=== PATIENT | female | born 1980 | race Caucasian/White ===

== ENCOUNTER 2019-11-17 08:42 | Day surgery (SDC) | payer BC ==
[~2019-11-17 08:42] MED LIST: Lactated Ringers 1,000 ML IV SCH; Sodium Chloride 0.9% 10 ML SDV IV PRN; Sodium Chloride 0.9% 10 ML Syringe FLUSH PRN; Sodium Chloride 0.9% 2.5 ML Syringe FLUSH PRN
--- NOTE | 2019-11-17 09:16 | PCM.PREANE ---
Preanesthetic Assessment - Anesthesia/Transfusion/Family Hx Anesthesia History: Prior Anesthesia Without Reaction Family History of Anesthesia Reaction: No Transfusion History: No Prior Transfusion(s) Intubation History: Unknown - Review of Systems General: No Symptoms Pulmonary: No Symptoms Cardiovascular: No Symptoms Gastrointestinal: No Symptoms Neurological: No Symptoms Other: Reports: None - Physical Assessment Vital Signs: Last Vital Signs Temp 36.4 C 11/17/19 08:50 Pulse 79 11/17/19 08:50 Resp 16 11/17/19 08:50 BP 106/70 11/17/19 08:50 Pulse Ox 100 11/17/19 08:50 Height: 5 ft 4 in Weight: 71.214 kg ASA Class: 2 Mental Status: Alert & Oriented x3 Airway Class: Mallampati = 2 Dentition: Reports: Normal Dentition Thyro-Mental Finger Breadths: 3 Mouth Opening Finger Breadths: 2 ROM/Head Extension: Full Lungs: Clear to Auscultation, Normal Respiratory Effort Cardiovascular: Regular Rate, Regular Rhythm - Lab Values: Laboratory Last Values Urine HCG, Qual NEGATIVE (NEGATIVE) 11/17/19 08:50 - Allergies Allergies/Adverse Reactions: Allergies Allergy/AdvReac Type Severity Reaction Status Date / Time No Known Allergies Allergy Verified 11/15/19 12:10 - Blood Blood Available: No - Anesthesia Plan Pre-Op Medication Ordered: None - Acknowledgements Anesthesia Type Planned: General Anesthesia Pt an Appropriate Candidate for the Planned Anesthesia: Yes Alternatives and Risks of Anesthesia Discussed w Pt/Guardian: Yes Pt/Guardian Understands and Agrees with Anesthesia Plan: Yes PreAnesthesia Questionnaire HEENT History: Reports: Other (See Below) Other HEENT History: wears glasses/contacts 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 [No Known Home Meds] 11/15/19 [History] - CURRENT (IN HOUSE) MEDS Current Meds: Current Medications Lactated Ringer's (Ringers, Lactated) 1,000 mls @ 125 mls/hr IV ASDIRECTED SRINIVAS Sodium Chloride (Saline Flush) 10 ml FLUSH ASDIRECTED PRN PRN Reason: Keep Vein Open Sodium Chloride (Saline Flush) 2.5 ml FLUSH ASDIRECTED PRN PRN Reason: Keep Vein Open Sodium Chloride (Normal Saline) 10 ml IV ASDIRECTED PRN PRN Reason: IV Use
[2019-11-17] MEDS ORDERED: Midazolam 1 MG/ML 2 ML SDV IVPUSH ONE (09:18)
[2019-11-17] MEDS ORDERED: fentaNYL 100 MCG/2 ML SDV IVPUSH PRN (09:20)
[2019-11-17] MEDS ORDERED: Acetaminophen 1,000 MG in Premix Bag 1 BAG IV PRN (09:20)
[2019-11-17] MEDS ORDERED: Methylene Blue 50 MG/10 ML Ampule ONE (09:29)
[2019-11-17] MEDS ORDERED: fentaNYL 100 MCG/2 ML SDV ONE (09:35)
[2019-11-17] MEDS ORDERED: Propofol 200 MG/20 ML SDV ONE (09:35)
[2019-11-17] MEDS ORDERED: Midazolam 1 MG/ML 2 ML SDV ONE (09:35)
[2019-11-17] MEDS ORDERED: Ketorolac 30 MG/ML SDV ONE (09:36)
[2019-11-17] MEDS ORDERED: Lidocaine 2% 5 ML SDV ONE (09:36)
[2019-11-17] MEDS ORDERED: Ondansetron 4 MG/2 ML SDV ONE (09:36)
[2019-11-17] MEDS ORDERED: Rocuronium 100 MG/10 ML Syringe ONE (09:36)
[2019-11-17] MEDS ORDERED: Glycopyrrolate 0.2 MG/ML SDV ONE (09:36)
[2019-11-17] MEDS ORDERED: Sugammadex Sodium 200 MG/2 ML VIAL ONE (09:39)
[2019-11-17] MEDS ORDERED: Octyl 2-Cyanoacrylate 1 Tube ONE (10:53)
--- NOTE | 2019-11-17 11:15 | PCM.DCSUM1 ---
Discharge Summary - Hospital Course Diagnosis: Stroke: No - Discharge Data Discharge Date: 11/17/19 Discharge Disposition: Home, Self-Care 01 Condition: Good - Referral to Home Health Primary Care Physician: PCP None - Patient Instructions Diet: Usual Diet as Tolerated Activity: As Tolerated Driving: Do Not Drive Showering/Bathing: May Shower - Discharge Plan Home Medications: Home Meds . [No Known Home Meds] 11/15/19 [History] - Discharge Summary/Plan Comment DC Time >30 min.: Yes - General Info Date of Service: 11/17/19 Functional Status: Reports: Pain Controlled - Review of Systems General: Reports: No Symptoms HEENT: Reports: No Symptoms Pulmonary: Reports: No Symptoms Cardiovascular: Reports: No Symptoms Gastrointestinal: Reports: No Symptoms Genitourinary: Reports: No Symptoms Musculoskeletal: Reports: No Symptoms Skin: Reports: No Symptoms Neurological: Reports: No Symptoms Psychiatric: Reports: No Symptoms - Patient Data Vitals - Most Recent: Last Vital Signs Temp 36.4 C 11/17/19 08:50 Pulse 79 11/17/19 08:50 Resp 16 11/17/19 08:50 BP 106/70 11/17/19 08:50 Pulse Ox 100 11/17/19 08:50 Weight - Most Recent: 71.214 kg Lab Results - Last 24 hrs: Laboratory Results - last 24 hr 11/17/19 Range/Units 08:50 Urine HCG, Qual NEGATIVE (NEGATIVE) Med Orders - Current: Current Medications Fentanyl (Sublimaze) 50 mcg IVPUSH Q5M PRN PRN Reason: Pain Lactated Ringer's (Ringers, Lactated) 1,000 mls @ 125 mls/hr IV ASDIRECTED SRINIVAS Last Admin: 11/17/19 09:15 Dose: 125 mls/hr Acetaminophen 1,000 mg/ Premix 100 mls @ 400 mls/hr IV Q6H PRN PRN Reason: Pain Sodium Chloride (Saline Flush) 10 ml FLUSH ASDIRECTED PRN PRN Reason: Keep Vein Open Sodium Chloride (Saline Flush) 2.5 ml FLUSH ASDIRECTED PRN PRN Reason: Keep Vein Open Sodium Chloride (Normal Saline) 10 ml IV ASDIRECTED PRN PRN Reason: IV Use Discontinued Medications Fentanyl (Sublimaze) Confirm Administered Dose 100 mcg .ROUTE .STK-MED ONE Stop: 11/17/19 09:36 Glycopyrrolate (Robinul) Confirm Administered Dose 0.2 mg .ROUTE .STK-MED ONE Stop: 11/17/19 09:37 Ketorolac Tromethamine (Toradol) Confirm Administered Dose 30 mg .ROUTE .STK- MED ONE Stop: 11/17/19 09:37 Lidocaine (Xylocaine-Mpf 2%) Confirm Administered Dose 5 ml .ROUTE .STK-MED ONE Stop: 11/17/19 09:37 Methylene Blue (Provayblue) Confirm Administered Dose 50 mg .ROUTE .STK-MED ONE Stop: 11/17/19 09:30 Midazolam HCl (Versed 1 Mg/Ml) 2 mg IVPUSH ONETIME ONE Stop: 11/17/19 09:19 Last Admin: 11/17/19 09:42 Dose: 2 mg Midazolam HCl (Versed 1 Mg/Ml) Confirm Administered Dose 2 mg .ROUTE .STK-MED ONE Stop: 11/17/19 09:36 Octyl Cyanoacrylate (Dermabond Advance) Confirm Administered Dose 1 applic .ROUTE .STK-MED ONE Stop: 11/17/19 10:54 Ondansetron HCl (Zofran) Confirm Administered Dose 4 mg .ROUTE .STK-MED ONE Stop: 11/17/19 09:37 Propofol (Diprivan 20 Ml) Confirm Administered Dose 200 mg .ROUTE .STK-MED ONE Stop: 11/17/19 09:36 Rocuronium [place] (Zemuron) Confirm Administered Dose 100 mg .ROUTE .STK-MED ONE Stop: 11/17/19 09:37 Sugammadex Sodium ([place]) Confirm Administered Dose 200 mg .ROUTE .STK-MED ONE Stop: 11/17/19 09:40 - Exam General: Reports: Alert, Oriented HEENT: Reports: Pupils Equal, Pupils Reactive, EOMI, Mucous Membr. Moist/[place] Neck: Reports: Supple Lungs: Reports: Clear to Auscultation, Normal Respiratory Effort Cardiovascular: Reports: Regular Rate, Regular Rhythm GI/Abdominal Exam: Normal Bowel Sounds, Soft, Non-Tender, No Organomegaly, No Distention, No Abnormal Bruit, No Mass, Pelvis Stable (Female) Exam: Normal External Exam, Normal Speculum Exam, Normal Bimanual Exam Rectal (Female) Exam: Normal Exam, Normal Rectal Tone Back Exam: Reports: Normal Inspection, Full Range of Motion Extremities: Normal Inspection, Normal Range of Motion, Non-Tender, No Pedal Edema, Normal Capillary Refill Skin: Reports: Warm, Dry, Intact Wound/Incisions: Reports: Healing Well Neurological: Reports: No New Focal Deficit Psy/Mental Status: Reports: Alert, Normal Affect, Normal Mood
--- NOTE | 2019-11-17 11:50 | PCM.POSTAN ---
POST ANESTHESIA ASSESSMENT - MENTAL STATUS Mental Status: Alert, Oriented - VITAL SIGNS Vital Signs: Last Vital Signs Temp 36.4 C 11/17/19 11:09 Pulse 70 11/17/19 11:44 Resp 15 11/17/19 11:44 BP 105/66 11/17/19 11:44 Pulse Ox 95 11/17/19 11:44 - RESPIRATORY Respiratory Status: Respiratory Rate WNL, Airway Patent, O2 Saturation Stable - CARDIOVASCULAR CV Status: Pulse Rate WNL, Blood Pressure Stable - GASTROINTESTINAL GI Status: No Symptoms - PAIN Pain Score: 3 - POST OP HYDRATION Hydration Status: Adequate & Stable - OBSERVATIONS Free Text/Narrative:: No anesthesia problems.
--- NOTE | 2019-11-17 12:28 | PCM48HPAN ---
Post Anesthesia Note - EVALUATION WITHIN 48HRS OF ANESTHETIC Vital Signs in Normal Range: Yes Patient Participated in Evaluation: Yes Respiratory Function Stable: Yes Airway Patent: Yes Cardiovascular Function Stable: Yes Hydration Status Stable: Yes Pain Control Satisfactory: Yes Nausea and Vomiting Control Satisfactory: Yes Mental Status Recovered: Yes Vital Signs: Last Vital Signs Temp 36.0 C L 11/17/19 11:50 Pulse 85 11/17/19 12:25 Resp 16 11/17/19 12:25 BP 111/65 11/17/19 12:25 Pulse Ox 98 11/17/19 12:25 - COMMENTS/OBSERVATIONS Free Text/Narrative:: No anesthesia problems.
--- NOTE | 2019-11-18 07:49 | OR ---
SURGEON: Elvin Brady MD DATE OF PROCEDURE: 11/17/2019 PREOPERATIVE DIAGNOSES: Pelvic pain, secondary infertility. POSTOPERATIVE DIAGNOSES: Pelvic pain, secondary infertility. OPERATION PERFORMED: Hysteroscopy, diagnostic laparoscopy. PRIMARY SURGEON: Elvin Brady MD TOOTH INSPECTOR: [place]. ANESTHESIA: General endotracheal intubation, Kam Palomo Arcos and Dr. Nieto. ESTIMATED BLOOD LOSS: Less than 50 mL. COMPLICATIONS: None. FINDINGS: The hysteroscopic finding was essentially normal. 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 INDICATIONS FOR SURGERY: This patient is 39 years old. She is attempting to get . Her hysterosalpingogram shows bilateral tubal occlusion, and the patient is admitted for further investigation in the form of hysteroscopy and diagnostic laparoscopy. PROCEDURE IN DETAIL: The patient was brought to the OR, properly identified, with an access to the abdomen and the vagina with the patient was prepped and draped in sterile fashion as usual. The cervix was dilated to accommodate 5 mm hysteroscope, and then hysteroscopy was performed. The endometrial cavity was essentially normal. Both ostia identified and they looked normal. There was no fibroid. There was no polyp into the endometrial cavity. Then the hysteroscope was removed, and ZUMI manipulator placed in place and the operation shifted abdominally. Stab wound done beneath the umbilicus. The Veress needle was placed in the peritoneal cavity and that cavity insufflated to 3.5 of carbon dioxide, and then utilizing the Visiport technique, 5 mm trocar inserted infraumbilically and then 5 mm trocar was placed in the left iliac fossa. After placing the patient in steep Trendelenburg, inspection of the pelvic organs revealed bilateral tubal occlusion with hydrosalpinx and clubbing of both tubal area. There was scarring in the cul-de-sac and around the tubes, which is most likely resultant from previous pelvic inflammatory disease. It is felt the ovaries look completely normal. The uterus is complete normal. It is felt at this time that the tube is not salvageable and it is not repairable and indeed the best chance for the patient to achieve is to seek in vitro consultation. Satisfied with these findings, the procedure ended. The instrument and hardware were retrieved from the abdomen and the vagina and the multiple laparoscopic incisions closed in layer. The patient tolerated the procedure well and went to recovery room in stable general condition. KRYSTAL / SUSAN /[id number]
== END 2019-11-17 12:30 | disposition home or self-care (01) ==
LOC: MW.SDS 08:42
PROVIDERS: ATTEND Obstetrics & Gynecology
DX: R10.2 Pelvic and perineal pain (principal); N97.1 Female infertility of tubal origin; N70.11 Chronic salpingitis; N85.8 Other specified noninflammatory disorders of uterus; F41.9 Anxiety disorder, unspecified; F32.9 Major depressive disorder, single episode, unspecified; F17.210 Nicotine dependence, cigarettes, uncomplicated
CPT/HCPCS: 49320; 58555; 81025; A9270; J0131; J1885; J2001; J2250; J2405; J2704; J3010; J3490; J7120; 00840

== ENCOUNTER 2020-05-24 08:12 | Day surgery (SDC) | payer BC ==
[2020-05-21 11:53] LABS: BLOOD UREA NITROGEN,BUN 9 mg/dL (7.0-18.0); CARBON DIOXIDE,CO2 27.4 mmol/L (21.0-32.0); CHLORIDE,CL 105 mmol/L (98-107); GLUCOSE RANDOM 95 mg/dL (74-106); POTASSIUM,K 4.2 mmol/L (3.5-5.1); SODIUM,NA 139 mmol/L (136-145)
[~2020-05-24 08:12] MED LIST changes: +Glycopyrrolate 0.2 MG/ML SDV ONE; +Lidocaine 2% 5 ML SDV ONE; +Midazolam 1 MG/ML 2 ML SDV ONE; +Ondansetron 4 MG/2 ML SDV ONE; +Propofol 200 MG/20 ML SDV ONE; +Rocuronium Bromide 50 MG/5 ML Syringe ONE; +fentaNYL 250 MCG/5 ML SDV ONE
[2020-05-24] MEDS ORDERED: Fluorescein 5 ML Vial ONE (08:47)
[2020-05-24] MEDS ORDERED: Octyl 2-Cyanoacrylate 1 Tube ONE (08:47)
[2020-05-24] MEDS ORDERED: fentaNYL 100 MCG/2 ML SDV IVPUSH PRN (08:48)
[2020-05-24] MEDS ORDERED: Albuterol 0.083% 2.5 MG/3 ML Neb Soln NEB PRN (08:48)
[2020-05-24] MEDS ORDERED: 50% Dextrose in Water 50 ML Syringe IVPUSH PRN (08:48)
[2020-05-24] MEDS ORDERED: EPINEPHrine 1:10,000 1 MG/10 ML Syringe IVPUSH PRN (08:48)
[2020-05-24] MEDS ORDERED: Naloxone 0.4 MG/ML Syringe IVPUSH PRN (08:48)
[2020-05-24] MEDS ORDERED: Atropine 0.1 MG/ML 10 ML Syringe IVPUSH PRN ×2 (08:48)
[2020-05-24] MEDS ORDERED: Midazolam 1 MG/ML 2 ML SDV IVPUSH ONE (09:20)
--- NOTE | 2020-05-24 09:22 | PCM.PREANE ---
Preanesthetic Assessment - Anesthesia/Transfusion/Family Hx Anesthesia History: Prior Anesthesia Without Reaction Family History of Anesthesia Reaction: No Transfusion History: No Prior Transfusion(s) Intubation History: Unknown - Review of Systems General: No Symptoms Pulmonary: No Symptoms Cardiovascular: No Symptoms Gastrointestinal: No Symptoms Neurological: No Symptoms Other: Reports: None - Physical Assessment NPO Status Date: 05/23/20 Vital Signs: Last Vital Signs Temp 97.7 F 05/24/20 08:30 Pulse 75 05/24/20 08:30 Resp 15 05/24/20 08:30 BP 110/73 05/24/20 08:30 Pulse Ox 98 05/24/20 08:30 Height: 5 ft 4 in Weight: 71.668 kg ASA Class: 2 Mental Status: Alert & Oriented x3 Airway Class: Mallampati = 2 Dentition: Reports: Normal Dentition ROM/Head Extension: Full Lungs: Clear to Auscultation, Normal Respiratory Effort Cardiovascular: Regular Rate, Regular Rhythm - Lab Values: Laboratory Last Values WBC 6.27 K/uL (4.0-11.0) 05/21/20 11:13 RBC 4.21 M/uL (4.30-5.90) L 05/21/20 11:13 Hgb 13.3 g/dL (12.0-16.0) 05/21/20 11:13 Hct 40.6 % (36.0-46.0) 05/21/20 11:13 MCV 96.4 fL (80.0-98.0) 05/21/20 11:13 MCH 31.6 pg (27.0-32.0) 05/21/20 11:13 MCHC 32.8 g/dL (31.0-37.0) 05/21/20 11:13 RDW Std Deviation 44.2 fl (28.0-62.0) 05/21/20 11:13 RDW Coeff of [place]ide 13 % (11.0-15.0) 05/21/20 11:13 Plt Count 304 K/uL (150-400) 05/21/20 11:13 MPV 9.80 fL (7.40-12.00) 05/21/20 11:13 Nucleated RBC % 0.0 /100WBC 05/21/20 11:13 Nucleated RBCs # 0 K/uL 05/21/20 11:13 Sodium 139 mmol/L (136-145) 05/21/20 11:13 Potassium 4.2 mmol/L (3.5-5.1) 05/21/20 11:13 Chloride 105 mmol/L (98-107) 05/21/20 11:13 Carbon Dioxide 27.4 mmol/L (21.0-32.0) 05/21/20 11:13 BUN 9 mg/dL (7.0-18.0) 05/21/20 11:13 Creatinine 0.6 mg/dL (0.6-1.0) 05/21/20 11:13 Est Cr Clr Drug Dosing 107.63 mL/min 05/21/20 11:13 Estimated GFR (MDRD) > 60.0 ml/min 05/21/20 11:13 Glucose 95 mg/dL (74-106) 05/21/20 11:13 Calcium 8.8 mg/dL (8.5-10.1) 05/21/20 11:13 HCG, Qual NEGATIVE (NEG) 05/21/20 11:13 Blood Type O POSITIVE 05/21/20 11:18 Antibody Screen NEGATIVE 05/21/20 11:18 - Allergies Allergies/Adverse Reactions: Allergies Allergy/AdvReac Type Severity Reaction Status Date / Time No Known Allergies Allergy Verified 05/18/20 14:13 - Anesthesia Plan Pre-Op Medication Ordered: Anxiolytic - Acknowledgements Anesthesia Type Planned: General Anesthesia Pt an Appropriate Candidate for the Planned Anesthesia: Yes Alternatives and Risks of Anesthesia Discussed w Pt/Guardian: Yes Pt/Guardian Understands and Agrees with Anesthesia Plan: Yes PreAnesthesia Questionnaire HEENT History: Reports: Other (See Below) Other HEENT History: wears glasses/contacts Cardiovascular History: Reports: None Respiratory History: Reports: None Gastrointestinal History: Reports: None Genitourinary History: Reports: None 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: , Other (See Below) Musculoskeletal History: Reports: None Neurological History: Reports: Other (See Below) Other Neuro History: hx of motion sickness Psychiatric History: Reports: Anxiety, Depression Endocrine/Metabolic History: Reports: None Hematologic History: Reports: None Immunologic History: Reports: None Oncologic (Cancer) History: Reports: None Dermatologic History: Reports: Psoriasis Other Dermatologic History: psoriasis on scalp - Past Surgical History Head Surgeries/Procedures: Reports: None HEENT Surgical History: Reports: Myringotomy w Tube(s), Oral Surgery Cardiovascular Surgical History: Reports: None Respiratory Surgical History: Reports: None GI Surgical History: Reports: None Female Surgical History: Reports: Other (See Below) Other Female Surgeries/Procedures: hysteroscopy, diagnostic laparoscopy Endocrine Surgical History: Reports: None Neurological Surgical History: Reports: None Musculoskeletal Surgical History: Reports: None Oncologic Surgical History: Reports: None Dermatological Surgical History: Reports: None - SUBSTANCE USE Tobacco Use Status *Q: Former Tobacco User Tobacco Use Within Last Twelve Months: Cigarettes - HOME MEDS Home Medications: Home Meds Clobetasol [Clobetasol Propionate 0.05%] 1 applic TOP ASDIRECTED PRN 05/18/20 [History] Fluticasone Propionate 1 spray NASBOTH DAILY 05/18/20 [History] Levothyroxine Sodium [Unithroid] 25 mcg PO DAILY 05/18/20 [History] Pnv No.95/Ferrous Fum/Folic AC [ Vitamin Tablet] 1 tab PO DAILY 05/18/20 [History] - CURRENT (IN HOUSE) MEDS Current Meds: Current Medications Albuterol (Proventil Neb Soln) 2.5 mg NEB ONETIME PRN PRN Reason: Wheezing Atropine Sulfate (Atropine 0.1 Mg/Ml) 0.5 mg IVPUSH ASDIRECTED PRN PRN Reason: Hypo-perfusion Atropine Sulfate (Atropine 0.1 Mg/Ml) 1 mg IVPUSH ASDIRECTED PRN PRN Reason: Hypo-Perfusion Dextrose/Water (Dextrose 50% In Water) 50 ml IVPUSH ASDIRECTED PRN PRN Reason: Hypoglycemia Epinephrine HCl (Epinephrine 1:10,000) 1 mg IVPUSH ASDIRECTED PRN PRN Reason: ACLS Guidelines Fentanyl (Sublimaze) 50 - 100 mcg IVPUSH Q5M PRN PRN Reason: Pain Lactated Ringer's (Ringers, Lactated) 1,000 mls @ 500 mls/hr IV BOLUS SRINIVAS Naloxone HCl (Narcan) 0.1 mg IVPUSH ASDIRECTED PRN PRN Reason: Respiratory Depression Sodium Chloride (Saline Flush) 10 ml FLUSH ASDIRECTED PRN PRN Reason: Keep Vein Open Sodium Chloride (Saline Flush) 2.5 ml FLUSH ASDIRECTED PRN PRN Reason: Keep Vein Open Sodium Chloride (Normal Saline) 10 ml IV ASDIRECTED PRN PRN Reason: IV Use Discontinued Medications Fentanyl (Sublimaze) Confirm Administered Dose 250 mcg .ROUTE .STK-MED ONE Stop: 05/24/20 07:05 Fluorescein Sodium ([place]-Fluor) Confirm Administered Dose 5 ml .ROUTE .STK-MED ONE Stop: 05/24/20 08:48 Glycopyrrolate (Robinul) Confirm Administered Dose 0.8 mg .ROUTE .STK-MED ONE Stop: 05/24/20 07:05 Lidocaine (Xylocaine-Mpf 2%) Confirm Administered Dose 5 ml .ROUTE .ST[employer]vel Ingredient Services-MED ONE Stop: 05/24/20 07:05 Midazolam HCl (Versed 1 Mg/Ml) Confirm Administered Dose 2 mg .ROUTE .STNovel [employer]red[employer] Services-MED ONE Stop: 05/24/20 07:05 Octyl Cyanoacrylate (Dermabond Advance) Confirm Administered Dose 1 applic .ROUTE .STNovel Ingred[employer] Services-MED ONE Stop: 05/24/20 08:48 Ondansetron HCl (Zofran) Confirm Administered Dose 4 mg .ROUTE .STNovel [employer] Services-MED ONE Stop: 05/24/20 07:05 Propofol (Diprivan 20 Ml) Confirm Administered Dose 200 mg .ROUTE .STK-MED ONE Stop: 05/24/20 07:05 Rocuronium [place] (Rocuronium [place]) Confirm Administered Dose 50 mg .ROUTE .STK-MED ONE Stop: 05/24/20 07:05
[2020-05-24] MEDS ORDERED: ePHEDrine 50 MG/ML SDV ONE (09:47)
--- NOTE | 2020-05-24 10:30 | PCM.OPNOTE ---
- General Post-Op/Procedure Note Date of Surgery/Procedure: 05/24/20 Operative Procedure(s): Dignostic Laparoscopy, Bilat Salpengectomy. Post-Op Diagnosis: Same Anesthesia Technique: General LMA Primary Surgeon: Elvin Brady EBL in mLs: 50 Complications: None Condition: Good
--- NOTE | 2020-05-24 10:31 | PCM.DCSUM1 ---
Discharge Summary - Hospital Course Diagnosis: Stroke: No - Discharge Data Discharge Date: 05/24/20 Discharge Disposition: Home, Self-Care 01 Condition: Good - Referral to Home Health Primary Care Physician: Jon Ramachandran MD - Patient Summary/Data Operative Procedure(s) Performed: Dignostic Laparoscopy, Bilat Salpengectomy. - Patient Instructions Diet: Usual Diet as Tolerated Activity: As Tolerated Driving: Do Not Drive Showering/Bathing: May Shower - Discharge Plan Home Medications: Home Meds Clobetasol [Clobetasol Propionate 0.05%] 1 applic TOP ASDIRECTED PRN 05/18/20 [History] Fluticasone Propionate 1 spray NASBOTH DAILY 05/18/20 [History] Levothyroxine Sodium [Unithroid] 25 mcg PO DAILY 05/18/20 [History] Pnv No.95/Ferrous Fum/Folic AC [ Vitamin Tablet] 1 tab PO DAILY 05/18/20 [History] - Discharge Summary/Plan Comment DC Time >30 min.: Yes - General Info Date of Service: 05/24/20 Functional Status: Reports: Pain Controlled - Review of Systems General: Reports: No Symptoms HEENT: Reports: No Symptoms Pulmonary: Reports: No Symptoms Cardiovascular: Reports: No Symptoms Gastrointestinal: Reports: No Symptoms Genitourinary: Reports: No Symptoms Musculoskeletal: Reports: No Symptoms Skin: Reports: No Symptoms Neurological: Reports: No Symptoms Psychiatric: Reports: No Symptoms - Patient Data Vitals - Most Recent: Last Vital Signs Temp 36.5 C 05/24/20 08:30 Pulse 75 05/24/20 08:30 Resp 15 05/24/20 08:30 BP 110/73 05/24/20 08:30 Pulse Ox 98 05/24/20 08:30 Weight - Most Recent: 71.668 kg Med Orders - Current: Current Medications Albuterol (Proventil Neb Soln) 2.5 mg NEB ONETIME PRN PRN Reason: Wheezing Atropine Sulfate (Atropine 0.1 Mg/Ml) 0.5 mg IVPUSH ASDIRECTED PRN PRN Reason: Hypo-perfusion Atropine Sulfate (Atropine 0.1 Mg/Ml) 1 mg IVPUSH ASDIRECTED PRN PRN Reason: Hypo-Perfusion Dextrose/Water (Dextrose 50% In Water) 50 ml IVPUSH ASDIRECTED PRN PRN Reason: Hypoglycemia Epinephrine HCl (Epinephrine 1:10,000) 1 mg IVPUSH ASDIRECTED PRN PRN Reason: ACLS Guidelines Fentanyl (Sublimaze) 50 - 100 mcg IVPUSH Q5M PRN PRN Reason: Pain Lactated Ringer's (Ringers, Lactated) 1,000 mls @ 500 mls/hr IV BOLUS SRINIVAS Last Admin: 05/24/20 08:40 Dose: 500 mls/hr Documented by: Naloxone HCl (Narcan) 0.1 mg IVPUSH ASDIRECTED PRN PRN Reason: Respiratory Depression Sodium Chloride (Saline Flush) 10 ml FLUSH ASDIRECTED PRN PRN Reason: Keep Vein Open Sodium Chloride (Saline Flush) 2.5 ml FLUSH ASDIRECTED PRN PRN Reason: Keep Vein Open Sodium Chloride (Normal Saline) 10 ml IV ASDIRECTED PRN PRN Reason: IV Use Discontinued Medications Ephedrine Sulfate (Ephedrine Sulfate) Confirm Administered Dose 50 mg .ROUTE .STK-MED ONE Stop: 05/24/20 09:48 Fentanyl (Sublimaze) Confirm Administered Dose 250 mcg .ROUTE .STK-MED ONE Stop: 05/24/20 07:05 Fluorescein Sodium ([place]-Fluor) Confirm Administered Dose 5 ml .ROUTE .STK-MED ONE Stop: 05/24/20 08:48 Glycopyrrolate (Robinul) Confirm Administered Dose 0.8 mg .ROUTE .STK-MED ONE Stop: 05/24/20 07:05 Lidocaine (Xylocaine-Mpf 2%) Confirm Administered Dose 5 ml .ROUTE .STK-MED ONE Stop: 05/24/20 07:05 Midazolam HCl (Versed 1 Mg/Ml) Confirm Administered Dose 2 mg .ROUTE .STK-MED ONE Stop: 05/24/20 07:05 Midazolam HCl (Versed 1 Mg/Ml) 2 mg IVPUSH ONETIME ONE Stop: 05/24/20 09:21 Last Admin: 05/24/20 09:20 Dose: 2 mg Documented by: Octyl Cyanoacrylate (Dermabond Advance) Confirm Administered Dose 1 applic .ROUTE .STK-MED ONE Stop: 05/24/20 08:48 Ondansetron HCl (Zofran) Confirm Administered Dose 4 mg .ROUTE .STK-MED ONE Stop: 05/24/20 07:05 Propofol (Diprivan 20 Ml) Confirm Administered Dose 200 mg .ROUTE .STK-MED ONE Stop: 05/24/20 07:05 Rocuronium [place] (Rocuronium [place]) Confirm Administered Dose 50 mg .ROUTE .STK-MED ONE Stop: 05/24/20 07:05 - Exam General: Reports: Alert, Oriented HEENT: Reports: Pupils Equal, Pupils Reactive, EOMI, Mucous Membr. Moist/[place]: Reports: Supple Lungs: Reports: Clear to Auscultation, Normal Respiratory Effort Cardiovascular: Reports: Regular Rate, Regular Rhythm GI/Abdominal Exam: Normal Bowel Sounds, Soft, Non-Tender, No Organomegaly, No Distention, No Abnormal Bruit, No Mass, Pelvis Stable (Female) Exam: Normal External Exam, Normal Speculum Exam, Normal Bimanual Exam Rectal (Female) Exam: Normal Exam, Normal Rectal Tone Back Exam: Reports: Normal Inspection, Full Range of Motion Extremities: Normal Inspection, Normal Range of Motion, Non-Tender, No Pedal Edema, Normal Capillary Refill Skin: Reports: Warm, Dry, Intact Wound/Incisions: Reports: Healing Well Neurological: Reports: No New Focal Deficit Psy/Mental Status: Reports: Alert, Normal Affect, Normal Mood
[2020-05-24] MEDS ORDERED: Haloperidol Lactate 5 MG/ML SDV IM ONE (10:52)
--- NOTE | 2020-05-24 10:53 | PCM.POSTAN ---
POST ANESTHESIA ASSESSMENT - MENTAL STATUS Mental Status: Alert, Oriented - VITAL SIGNS Vital Signs: Last Vital Signs Temp 97.3 F 05/24/20 10:29 Pulse 108 H 05/24/20 10:50 Resp 9 L 05/24/20 10:50 BP 97/65 05/24/20 10:50 Pulse Ox 99 05/24/20 10:50 - RESPIRATORY Respiratory Status: Respiratory Rate WNL, Airway Patent, O2 Saturation Stable - CARDIOVASCULAR CV Status: Pulse Rate WNL - POST OP HYDRATION Hydration Status: Adequate & Stable
[2020-05-24] MEDS ORDERED: Ketorolac 30 MG/ML SDV ONE (11:00)
--- NOTE | 2020-05-24 11:59 | PCM48HPAN ---
Post Anesthesia Note - EVALUATION WITHIN 48HRS OF ANESTHETIC Vital Signs in Normal Range: Yes Patient Participated in Evaluation: Yes Respiratory Function Stable: Yes Airway Patent: Yes Cardiovascular Function Stable: Yes Hydration Status Stable: Yes Pain Control Satisfactory: Yes Nausea and Vomiting Control Satisfactory: Yes Mental Status Recovered: Yes Vital Signs: Last Vital Signs Temp 97.3 F 05/24/20 10:29 Pulse 108 H 05/24/20 10:50 Resp 9 L 05/24/20 10:50 BP 97/65 05/24/20 10:50 Pulse Ox 99 05/24/20 10:50
[2020-05-24] MEDS ORDERED: Ketorolac 30 MG/ML SDV IVPUSH ONE (13:19)
--- NOTE | 2020-05-24 13:57 | OR ---
SURGEON: Elvin Brady MD DATE OF PROCEDURE: 05/24/2020 PREOPERATIVE DIAGNOSIS: Infertility, bilateral hydrosalpinx. POSTOPERATIVE DIAGNOSIS: Infertility, bilateral hydrosalpinx. OPERATIONS PERFORMED: Multiple-puncture diagnostic laparoscopy and bilateral salpingectomy. PRIMARY SURGEON: Elvin Brady MD DAIRY CHEMIST: OR tech. ANESTHESIA: General endotracheal intubation, Dr. Jeri Charles. ESTIMATED BLOOD LOSS: 50 mL. COMPLICATIONS: None. FINDINGS: Bilateral hydrosalpinx. INDICATION TO SURGERY: This patient is 39 years old. She had bilateral hydrosalpinx. On the advice and consultation of her in vitro fertilization, the patient was recommended to have bilateral salpingectomy. PROCEDURE IN DETAIL: The patient was brought to the OR, properly identified. After adequate level of anesthesia, the patient was placed in lithotomy position, prepped and draped in sterile fashion as usual. Straight catheter was used to empty the bladder and Hulka manipulator was placed in the uterus for manipulation. The operation shifted abdominally. Veress needle in the peritoneal cavity and that cavity insufflated with 3 L of carbon dioxide, and then utilizing the Visiport technique, 5 mm trocar was placed centrally and then 10/12 trocar placed in the left iliac fossa and 5 mm in the right under direct vision. The operation started by identifying the tube on both sides and using the Harmonic scapula, bilateral salpingectomy achieved without any problem removing both tubes. Once we did that, thorough irrigation and observation of the operative field shows no oozing, no bleeding. Then, the procedure at this time is ended. The abdomen is deflated. Multiple laparoscopic incisions were closed in layer. Instrument and sponge count was correct. The patient tolerated the procedure well, went to recovery room in stable general condition. KRYSTAL / SUSAN /[id number]
== END 2020-05-24 12:05 | disposition home or self-care (01) ==
LOC: MW.SDS 08:12
PROVIDERS: ATTEND Obstetrics & Gynecology
DX: N70.11 Chronic salpingitis (principal); N97.9 Female infertility, unspecified; F41.8 Other specified anxiety disorders; F17.210 Nicotine dependence, cigarettes, uncomplicated; Z98.890 Other specified postprocedural states; Z79.899 Other long term (current) drug therapy
CPT/HCPCS: 36415; 58661; 80048; 84703; 85027; 86850; 86900; 86901; A9270; J1630; J1885; J2001; J2250; J2405; J2704; J3010; J3490; J7120

== ENCOUNTER 2020-10-28 10:58 | Emergency (ER) | payer BC ==
--- NOTE | 2020-10-28 11:32 | EDM.PDOC ---
ED HPI GENERAL MEDICAL PROBLEM - General Chief Complaint: Allergic Reaction Stated Complaint: ALLERGIC REACTION Time Seen by Provider: 10/28/20 11:03 Source of Information: Reports: Patient History Limitations: Reports: No Limitations - History of Present Illness INITIAL COMMENTS - FREE TEXT/NARRATIVE: HISTORY AND PHYSICAL: History of present illness: The patient is a 40-year-old female who presents to the emergency room with complaints of a possible allergic reaction. The patient was on prednisone for her scalp psoriasis from Thursday until October 23. She had been taking amoxicillin for a sinus infection also which started on September 18 and has 2 days left in the course. The patient noticed a rash develop on her face last night with an itch along the jawline. She took Benadryl 50 mg orally which took care of the itch. This morning she noticed the rash had spread to her chest, arms and thighs. She is not allergic to anything and has never experienced anything like this before. She does not use lotions. She has not changed her laundry soaps or body soap. Patient denies any fever, chills, headache, change in vision, syncope or near syncope. Denies any chest pain, back pain, shortness of breath or cough. Denies any abdominal pain, nausea, vomiting, diarrhea, constipation or dysuria. Has not noted any blood in urine or stool. Patient has been eating and drinking appropriately. In the emergency department the patient is hemodynamically stable with a blood pressure of 115/73 and a heart rate of 94. She is afebrile with a temperature of 97.7. She is in no apparent distress Review of systems: As per history of present illness and below otherwise all systems reviewed and negative. Past medical history: As per history of present illness and as reviewed below otherwise noncontributory. Surgical history: As per history of present illness and as reviewed below otherwise noncontributory. Social history: See social history for further information Family history: As per history of present illness and as reviewed below otherwise noncontributory. Physical exam: General: Well developed and well nourished. Alert and orientated x 3. Nontoxic in appearance and in no acute distress. Vital signs are stable and have been reviewed by me. Nursing notes were reviewed. HEENT: Atraumatic, normocephalic, pupils equal and reactive bilaterally, negative for conjunctival pallor or scleral icterus, mucous membranes moist, TMs normal bilaterally, throat clear, neck supple, nontender, trachea midline. No drooling or trismus noted. No meningeal signs. No hot potato voice noted. Lungs: Clear to auscultation bilaterally. No wheezes, rales, or rhonchi. Chest nontender. Normal work of breathing, no accessory muscles used. Heart: S1S2, regular rate and rhythm without overt murmur, gallops, or rubs. No JVD. No peripheral edema Abdomen: Soft, nondistended, nontender. Normoactive bowel sounds. Negative for masses or costovertebral tenderness. Skin: Intact, warm, dry. Macular papular erythema raised rash to face, A/P trunk, bilateral arms and bilateral thighs. Hematologic: No petechiae or purpra. Mucosa appropriate color and normal nail bed color and refill. Extremities: Atraumatic, moves all extremities per self without difficulty or deficits, negative for cords or calf pain. Neurovascular unremarkable. Neuro: Awake, alert, oriented. Cranial nerves II through XII unremarkable. Cerebellum unremarkable. Motor and sensory unremarkable throughout. Exam nonfocal. Psychiatric: Mood and affect are appropriate. Normal thought process. Answering questions appropriately. Notes: *This patient was seen and evaluated during the 2019 SARS-CoV-2 novel coronavirus pandemic period. Community viral transmission is ongoing at time of this encounter and the emergency department is operating under pandemic response procedures. After examination and discussion the patient is agreeable to stopping her amoxicillin and a short course of prednisone 40mg for 5 days. The patient was educated on the possibility this reaction could be from something else. And the need to follow-up with her primary care especially if after stopping the amoxicillin and post prednisone the rash returns. I have talked with the patient about today's findings, in addition to providing specific details for plan of care. Reassessment at the time of disposition demonstrates that the patient is in no acute distress. The patient is stable for discharge, counseling was provided and we discussed in great detail signs and symptoms that would prompt them to return to the Emergency Department. Medication, follow up and supportive care measures were reviewed and discussed. Voices understanding and is agreeable to plan of care. Denies any further questions or concerns at this time. Prescription: Prednisone 40 mg p.o. daily for 5 days Impression: Allergic reaction Plan: 1. You were evaluated today on an emergent basis. Your rash after 8 days on am oxicillin was evaluated and we will treat with prednisone 20 mg for 5 days and you can take [id number] Benadryl as needed for your itch. Ensure that you follow-up with your primary care. Again if you develop the rash after 7 days reevaluate for further allergies. If you become short of breath or have further symptoms please return to the emergency department 2. You can alternate Tylenol and ibuprofen as needed for pain and fever management. 3. We encourage you to follow up with your primary care provider and/or recommended specialist in the next few days for re-evaluation and further care/management. 4. If your symptoms should worsen, new symptoms develop or any of the signs and symptoms we discussed should arise please return to the emergency room or call 911 (if needed). Definitive disposition and diagnosis as appropriate pending reevaluation and review of above. - Related Data Allergies Allergy/AdvReac Type Severity Reaction Status Date / Time No Known Allergies Allergy Verified 10/28/20 11:08 Home Meds: Home Meds Clobetasol [Clobetasol Propionate 0.05%] 1 applic TOP ASDIRECTED PRN 05/18/20 [History] Fluticasone Propionate 1 spray NASBOTH DAILY 05/18/20 [History] Pnv No.95/Ferrous Fum/Folic AC [ Vitamin Tablet] 1 tab PO DAILY 05/18/20 [History] Levothyroxine Sodium [Synthroid] 75 mcg PO DAILY 10/28/20 [History] predniSONE [Prednisone] 40 mg PO DAILY 5 Days #10 tablet 10/28/20 [Rx] Past Medical History HEENT History: Reports: Other (See Below) Other HEENT History: wears glasses/contacts Cardiovascular History: Reports: None Respiratory History: Reports: None Gastrointestinal History: Reports: None Genitourinary History: Reports: None LIGHT OUT EXAMINER History: Reports: Musculoskeletal History: Reports: None Neurological History: Reports: Other (See Below) Other Neuro History: hx of motion sickness Psychiatric History: Reports: Anxiety, Depression Endocrine/Metabolic History: Reports: None Hematologic History: Reports: None Immunologic History: Reports: None Oncologic (Cancer) History: Reports: None Dermatologic History: Reports: Psoriasis Other Dermatologic History: psoriasis on scalp - Infectious Disease History Infectious Disease History: Reports: Chicken Pox - Past Surgical History Head Surgeries/Procedures: Reports: None HEENT Surgical History: Reports: Myringotomy w Tube(s), Oral Surgery Cardiovascular Surgical History: Reports: None Respiratory Surgical History: Reports: None GI Surgical History: Reports: None Female Surgical History: Reports: Other (See Below) Other Female Surgeries/Procedures: hysteroscopy, diagnostic laparoscopy Endocrine Surgical History: Reports: None Neurological Surgical History: Reports: None Musculoskeletal Surgical History: Reports: None Oncologic Surgical History: Reports: None Dermatological Surgical History: Reports: None Social & Family History - Family History Family Medical History: No Pertinent Family History - Tobacco Use Tobacco Use Status *Q: Former Tobacco User Years of Tobacco use: 3 Used Tobacco, but Quit: Yes Month/Year Tobacco Last Used: 07/2020 - Caffeine Use Caffeine Use: Reports: Energy Drinks, Tea - Recreational Drug Use Recreational Drug Use: No ED ROS ALLERGIC REACTION - Review of Systems Review Of Systems: Comprehensive ROS is negative, except as noted in HPI. ED EXAM GENERAL NO PERIP PULSE - Physical Exam Exam: See Below (See dictation) Course - Vital Signs Last Recorded V/S: Last Vital Signs Temp 97.8 F 10/28/20 11:36 Pulse 82 10/28/20 11:36 Resp 16 10/28/20 11:36 BP 110/72 10/28/20 11:36 Pulse Ox 97 10/28/20 11:36 Departure - Departure Time of Disposition: 11:30 Disposition: Home, Self-Care 01 Condition: Good Clinical Impression: Allergic reaction Qualifiers: Encounter type: initial encounter Qualified Code(s): T78.40XA - Allergy, unspecified, initial encounter - Discharge Information *PRESCRIPTION DRUG MONITORING PROGRAM REVIEWED*: Not Applicable *COPY OF PRESCRIPTION DRUG MONITORING REPORT IN PATIENT KHADAR: Not Applicable Prescriptions: predniSONE [Prednisone] 40 mg PO DAILY 5 Days #10 tablet Instructions: Allergies, Adult, [id number] Referrals: PCP,None [Primary Care Provider] - Forms: ED Department Discharge Additional Instructions: The following information is given to patients seen in the emergency department who are being discharged to home. This information is to outline your options for follow-up care. We provide all patients seen in our emergency department with a follow-up referral. The need for follow-up, as well as the timing and circumstances, are variable depending upon the specifics of your emergency department visit. If you don't have a primary care physician on staff, we will provide you with a referral. We always advise you to contact your personal physician following an emergency department visit to inform them of the circumstance of the visit and for follow-up with them and/or the need for any referrals to a consulting specialist. The emergency department will also refer you to a specialist when appropriate. This referral assures that you have the opportunity for follow-up care with a specialist. All of these measure are taken in an effort to provide you with optimal care, which includes your follow-up. Under all circumstances we always encourage you to contact your private physician who remains a resource for coordinating your care. When calling for follow-up care, please make the office aware that this follow-up is from your recent emergency room visit. If for any reason you are refused follow-up, please contact the [facility] Emergency Department at and asked to speak to the emergency department charge nurse. [facility] [address] [place] [address] [id number] [address] [address] Plan: 1. You were evaluated today on an emergent basis. Your rash after 8 days on amoxicillin was evaluated and we will treat with prednisone 20 mg for 5 days and you can take [id number] Benadryl as needed for your itch. Ensure that you follow-up with your primary care. Again if you develop the rash after 7 days reevaluate for further allergies. If you become short of breath or have further symptoms please return to the emergency department 2. You can alternate Tylenol and ibuprofen as needed for pain and fever management. 3. We encourage you to follow up with your primary care provider and/or recommended specialist in the next few days for re-evaluation and further care/management. 4. If your symptoms should worsen, new symptoms develop or any of the signs and symptoms we discussed should arise please return to the emergency room or call 911 (if needed). Sepsis Event Note (ED) - Evaluation Sepsis Screening Result: No Definite Risk - Focused Exam Vital Signs: Vital Signs Temp Pulse Resp BP Pulse Ox 10/28/20 11:36 97.8 F 82 16 110/72 97 10/28/20 11:11 97.7 F 94 18 115/73 99
== END 2020-10-28 11:42 | disposition home or self-care (01) ==
LOC: MW.ED 10:58
DX: R21 Rash and other nonspecific skin eruption (principal); T38.0X5A Adverse effect of glucocorticoids and synthetic analogues, initial encounter; T36.0X5A Adverse effect of penicillins, initial encounter; Z79.899 Other long term (current) drug therapy; Z87.891 Personal history of nicotine dependence
CPT/HCPCS: 99283